=== PATIENT | female | born 1980 | race Caucasian/White ===

== ENCOUNTER 2017-10-31 06:47 | Emergency (ER) | payer OTHER ==
[~2017-10-31] VITALS: Ht 172.7 cm; Wt 101.2 kg
[~2017-10-31 06:47] MED LIST: ADIPEX-P37.5 MG PO; AMOXICILLIN500 MG PO; AUGMENTIN 875875 MG PO; CATAFLAM50 MG PO; CLARITIN-D 24 H1 TAB PO; CLARITIN10 MG PO; DOXYCYCLINE MO100 MG PO; FLEXERIL5 MG PO; HYDROCODONE BIT1 T11 PO; IBU800 MG PO; KLOR-CON 88 ME1 PO; LASIX20 MG PO; MEDROL DOSEPAK4 MG PO; MOTRIN800 MG PO; OMEPRAZOLE MAGN20 MG PO; PRILOSEC40 MG; PROVENTIL0.09 MG/AC IH; ROBITUSSIN AC 110 ML PO; ROBITUSSIN-AC480 ML PO; SYNTHROID0.025 MG PO; VITAMIN B1100 MCG/ML IM; VITAMIN B1225 MCG; VITAMIN D1000 IU PO; ZITHROMAX Z PA250 MG PO
[2017-10-31] MEDS ORDERED: ADULT TUSS100 MG/5 M PO (07:42)
== END 2017-10-31 09:37 | disposition home or self-care (01) ==
LOC: ED 06:47
DX: J01.90 Acute sinusitis, unspecified (principal); Z88.8 Allergy status to other drugs, medicaments and biological substances; Z88.6 Allergy status to analgesic agent; Z79.899 Other long term (current) drug therapy; Z90.89 Acquired absence of other organs; Z98.51 Tubal ligation status

== ENCOUNTER → 2018-01-08 | Outpatient (CLI) | payer OTHER ==
[~2018-01-08] MED LIST changes: +ADULT TUSS100 MG/5 M PO
[2018-01-08 17:26] LABS: FREE T4 1.06 ng/dl (0.76-1.46)
[2018-01-08 17:40] LABS: THYROID STIM HORMONE (HS) 23.6 uIU/ml (0.358-4.75)
== END | disposition home or self-care (01) ==
LOC: LAB 15:44
PROVIDERS: Internal Medicine
DX: E03.9 Hypothyroidism, unspecified (principal)

== ENCOUNTER 2018-05-17 01:00 | Emergency (ER) | payer OTHER ==
[~2018-05-17] VITALS: Ht 172.7 cm; Wt 103.9 kg
[2018-05-17] MEDS ORDERED: Motrin,Rufen800 MG PO (02:26)
[2018-05-17] MEDS ORDERED: TAMIFLU 75MG CA75 MG PO (02:26)
== END 2018-05-17 02:47 | disposition home or self-care (01) ==
LOC: ED 01:00
DX: J10.1 Influenza due to other identified influenza virus with other respiratory manifestations (principal); E03.9 Hypothyroidism, unspecified; Z88.6 Allergy status to analgesic agent; Z88.8 Allergy status to other drugs, medicaments and biological substances; Z79.899 Other long term (current) drug therapy

== ENCOUNTER → 2018-08-15 | Outpatient (CLI) | payer OTHER ==
[~2018-08-15] MED LIST changes: +FLONASE ALLERG9.9 ML NAS; +Motrin,Rufen800 MG PO; +PREDNISONE50 MG PO; +TAMIFLU 75MG CA75 MG PO
[2018-08-15 10:49] LABS: BASO # 0.1 10*3/uL (0.0-0.1); BASO % 0.9 % (0.0-1.0); EOS # 0.2 10*3/uL (0.0-0.4); EOS % 2.6 % (1.0-4.0); HEMATOCRIT 34.9 % (37.0-47.0); LYMPH # 1.9 10*3/uL (1.3-4.4); LYMPH % 32.5 % (27.0-41.0); MEAN CELL VOLUME 86.8 fl (81.0-99.0); MEAN CORPUSCULAR HGB 27.4 pg (27.0-31.0); MEAN CORPUSCULAR HGB CONC 31.5 g/dl (33.0-37.0); MEAN PLATELET VOLUME 11.5 fl (9.6-12.3); MONO # 0.4 10*3/uL (0.1-1.0); MONO % 7.1 % (3.0-9.0); NEUT # 3.3 10*3/uL (2.3-7.9); NEUT % 56.6 % (47.0-73.0); PLATELET COUNT AUTOMATED 250 10*3/uL (130-400); RED BLOOD COUNT 4.02 10*6/uL (4.10-5.10); RED CELL DISTRI WIDTH 13.7 % (0-14.5); WHITE BLOOD COUNT 5.8 10*3/uL (4.8-10.8)
[2018-08-15 11:14] LABS: ALBUMIN 3.2 gm/dl (3.1-4.5); ALKALINE PHOSPHATASE 70 U/L (45-117); BUN 9 mg/dl (7-24); CHLORIDE 112 mmol/L (98-107); CREATININE 0.81 mg/dL (0.55-1.02); FREE T4 0.92 ng/dl (0.76-1.46); POTASSIUM 3.7 mmol/L (3.5-5.1); SGOT/AST 32 IU/L (3-35); SGPT/ALT 18 U/L (12-78); SODIUM 141 mmol/L (136-145); TOTAL PROTEIN 7.5 gm/dL (6.4-8.2)
[2018-08-16 08:06] LABS: RHEUMATOID ARTHRITIS FACTOR <10.0 IU/mL (0.0-13.9)
== END | disposition home or self-care (01) ==
LOC: LAB 10:22
PROVIDERS: Internal Medicine
DX: M25.50 Pain in unspecified joint (principal)

== ENCOUNTER 2018-08-25 23:28 | Emergency (ER) | payer OTHER ==
[~2018-08-25] VITALS: Wt 103.4 kg
[~2018-08-25 23:28] MED LIST changes: -FLONASE ALLERG9.9 ML NAS; -PREDNISONE50 MG PO
[2018-08-26] MEDS ORDERED: FLONASE ALLERG9.9 ML NAS (01:25)
[2018-08-26] MEDS ORDERED: PREDNISONE50 MG PO (01:25)
== END 2018-08-26 01:40 | disposition home or self-care (01) ==
LOC: ED 23:28
DX: J06.9 Acute upper respiratory infection, unspecified (principal); H92.03 Otalgia, bilateral; E03.9 Hypothyroidism, unspecified; Z88.6 Allergy status to analgesic agent; Z88.8 Allergy status to other drugs, medicaments and biological substances; Z79.899 Other long term (current) drug therapy

== ENCOUNTER → 2018-08-27 | Outpatient (CLI) | payer OTHER ==
[~2018-08-27] MED LIST changes: +FLONASE ALLERG9.9 ML NAS; +PREDNISONE50 MG PO
[2018-08-27 13:26] LABS: IRON 27 ug/dL (50-170); TOTAL IRON BINDING CAPACITY 271 ug/dl (250-450)
[2018-08-28 17:08] LABS: ANTI-DSDNA ANTIBODIES 096339 1 IU/mL (0-9); ANTI-RNP ANTIBODIES <0.2 AI (0.0-0.9); SJOGREN ANTI-SS-A <0.2 AI (0.0-0.9); SJOREN AB, ANTI-SS-B <0.2 AI (0.0-0.9)
[2018-08-28 21:09] LABS: CCP ANTIBODIES IGG/IGA 8 units (0-19)
== END | disposition home or self-care (01) ==
LOC: LAB 11:49
PROVIDERS: Internal Medicine
DX: D64.9 Anemia, unspecified (principal); R76.8 Other specified abnormal immunological findings in serum

== ENCOUNTER → 2018-12-29 | Outpatient (CLI) | payer OTHER | END | disposition home or self-care (01) | LOC: RAD 16:32 | DX: M25.561 Pain in right knee (principal); M25.572 Pain in left ankle and joints of left foot ==

== ENCOUNTER 2019-01-09 22:58 | Emergency (ER) | payer OTHER ==
[~2019-01-09] VITALS: Ht 172.7 cm; Wt 95.3 kg
== END 2019-01-10 00:35 | disposition home or self-care (01) ==
LOC: ED 22:58
DX: M79.672 Pain in left foot (principal); I10 Essential (primary) hypertension; E78.00 Pure hypercholesterolemia, unspecified; Z86.73 Personal history of transient ischemic attack (TIA), and cerebral infarction without residual deficits; Z88.6 Allergy status to analgesic agent; Z88.8 Allergy status to other drugs, medicaments and biological substances; Z79.899 Other long term (current) drug therapy; X50.1XXA Overexertion from prolonged static or awkward postures, initial encounter; Y93.89 Activity, other specified; Y92.89 Other specified places as the place of occurrence of the external cause; Y99.8 Other external cause status

== ENCOUNTER 2019-04-22 21:19 | Emergency (ER) | payer OTHER | END 2019-04-22 21:27 | disposition left against medical advice (07) | LOC: ED 21:19 | DX: R53.1 Weakness (principal); Z53.21 Procedure and treatment not carried out due to patient leaving prior to being seen by health care provider ==

== ENCOUNTER → 2019-10-31 | Outpatient (CLI) | payer OTHER ==
[2019-10-31 17:05] LABS: THYROID STIM HORMONE (HS) 0.242 uIU/ml (0.358-4.75)
== END | disposition home or self-care (01) ==
LOC: LAB 15:31
PROVIDERS: ATTEND Internal Medicine
DX: E61.1 Iron deficiency (principal); E03.9 Hypothyroidism, unspecified

== ENCOUNTER → 2020-03-27 | Outpatient (CLI) | payer OTHER ==
[2020-03-27 15:52] LABS: THYROID STIM HORMONE (HS) 0.673 uIU/ml (0.358-4.75)
[2020-03-27 16:01] LABS: FERRITIN 52.1 ng/mL (10.0-291.0)
== END | disposition home or self-care (01) ==
LOC: LAB 14:58
PROVIDERS: ATTEND Internal Medicine
DX: E03.9 Hypothyroidism, unspecified (principal); E53.8 Deficiency of other specified B group vitamins; E61.1 Iron deficiency

== ENCOUNTER → 2020-10-01 | Outpatient (CLI) | payer OTHER ==
[2020-10-01 17:48] LABS: VITAMIN D, 25-HYDROXY 25.8 ng/mL (30-100)
[2020-10-01 17:50] LABS: ALBUMIN 3.3 gm/dl (3.1-4.5); ALKALINE PHOSPHATASE 88 U/L (45-117); BUN 11 mg/dl (7-24); CHLORIDE 110 mmol/L (98-107); CHOLESTEROL 140 mg/dL (<200); CREATININE 0.62 mg/dL (0.55-1.02); LDL CHOLESTEROL 82 mg/dL (9-159); POTASSIUM 3.6 mmol/L (3.5-5.1); SGOT/AST 33 IU/L (3-35); SGPT/ALT 21 U/L (12-78); SODIUM 140 mmol/L (136-145); TOTAL PROTEIN 7.5 gm/dL (6.4-8.2); TRIGLYCERIDES 84 mg/dl (<150)
[2020-10-01 17:58] LABS: THYROID STIM HORMONE (HS) 0.229 uIU/ml (0.358-4.75)
== END | disposition home or self-care (01) ==
LOC: LAB 16:48
PROVIDERS: ATTEND Internal Medicine
DX: K21.9 Gastro-esophageal reflux disease without esophagitis (principal); E53.8 Deficiency of other specified B group vitamins; E55.9 Vitamin D deficiency, unspecified; E03.9 Hypothyroidism, unspecified

== ENCOUNTER 2021-03-17 11:55 | Emergency (ER) | payer OTHER ==
[~2021-03-17] VITALS: Ht 172.7 cm; Wt 99.8 kg
[2021-03-17] MEDS ORDERED: SINGULAIR10 M1 PO (12:26)
[2021-03-17 13:58] LABS: BASO # 0.1 10*3/uL (0.0-0.1); BASO % 0.9 % (0.0-1.0); EOS # 0.2 10*3/uL (0.0-0.4); EOS % 2.7 % (1.0-4.0); HEMATOCRIT 32.1 % (37.0-47.0); LYMPH # 2.6 10*3/uL (1.3-4.4); LYMPH % 33.7 % (27.0-41.0); MEAN CELL VOLUME 86.5 fl (81.0-99.0); MEAN CORPUSCULAR HGB CONC 31.2 g/dl (33.0-37.0); MEAN PLATELET VOLUME 10.3 fl (9.6-12.3); MONO # 0.4 10*3/uL (0.1-1.0); MONO % 4.9 % (3.0-9.0); NEUT # 4.4 10*3/uL (2.3-7.9); NEUT % 57.5 % (47.0-73.0); PLATELET COUNT AUTOMATED 317 10*3/uL (130-400); RED BLOOD COUNT 3.71 10*6/uL (4.10-5.10); RED CELL DISTRI WIDTH 13.3 % (0-14.5); WHITE BLOOD COUNT 7.7 10*3/uL (4.8-10.8)
[2021-03-17 14:11] LABS: ACT PARTIAL THROMBO TIME 28.5 SECONDS (20.0-32.1)
[2021-03-17 14:15] LABS: ALBUMIN 3.3 gm/dl (3.1-4.5); ALKALINE PHOSPHATASE 82 U/L (45-117); BUN 9 mg/dl (7-24); CHLORIDE 109 mmol/L (98-107); CREATININE 0.71 mg/dL (0.55-1.02); LIPASE 139 U/L (73-393); POTASSIUM 3.5 mmol/L (3.5-5.1); SGOT/AST 32 IU/L (3-35); SGPT/ALT 20 U/L (12-78); SODIUM 140 mmol/L (136-145); TOTAL PROTEIN 7.7 gm/dL (6.4-8.2)
[2021-03-17 17:32] LABS: BILIRUBIN 1+ (Negative); BLOOD 3+ (Negative); CLARITY Turbid (Clear); COLOR Red (Yellow); GLUCOSE Negative (Negative); KETONE Negative (Negative); LEUKO ESTERASE 3+ (Negative); NITRITE Positive (Negative); UROBILINOGEN 0.2 E.U./dl (0.0-1.0)
[2021-03-17 17:43] LABS: RBC TNTC rbc/hpf (0-2); WBC 31-40 wbc/hpf (0-5)
== END 2021-03-17 17:45 | disposition left against medical advice (07) ==
LOC: ED 11:55
PROVIDERS: Physician Assistant
DX: R53.1 Weakness (principal); Z88.8 Allergy status to other drugs, medicaments and biological substances; Z88.6 Allergy status to analgesic agent; Z79.899 Other long term (current) drug therapy; Z98.890 Other specified postprocedural states; Z98.51 Tubal ligation status; Z90.89 Acquired absence of other organs

== ENCOUNTER → 2021-03-24 | Outpatient (CLI) | payer OTHER ==
[~2021-03-24] MED LIST changes: +SINGULAIR10 M1 PO
== END | disposition home or self-care (01) ==
LOC: MRI 12:00
PROVIDERS: ATTEND Internal Medicine
DX: R53.1 Weakness (principal)

== ENCOUNTER → 2021-04-14 | Outpatient (CLI) | payer OTHER ==
[2021-04-14 18:04] LABS: FREE T4 1.18 ng/dl (0.76-1.46)
[2021-04-14 18:09] LABS: THYROID STIM HORMONE (HS) 22.3 uIU/ml (0.358-4.75)
== END ==
LOC: LAB 16:51
PROVIDERS: ATTEND Internal Medicine
DX: R41.3 Other amnesia (principal); E55.9 Vitamin D deficiency, unspecified

== ENCOUNTER → 2023-07-14 | Outpatient (CLI) | payer OTHER ==
[2023-07-14 17:00] LABS: BASO # 0.1 10*3/uL (0.0-0.1); BASO % 0.5 % (0.0-1.0); EOS # 0.2 10*3/uL (0.0-0.4); EOS % 2.1 % (1.0-4.0); HEMATOCRIT 31.2 % (37.0-47.0); LYMPH # 2.5 10*3/uL (1.3-4.4); LYMPH % 21.9 % (27.0-41.0); MEAN CELL VOLUME 81.7 fl (81.0-99.0); MEAN CORPUSCULAR HGB 24.9 pg (27.0-31.0); MEAN CORPUSCULAR HGB CONC 30.4 g/dl (33.0-37.0); MEAN PLATELET VOLUME 10.4 fl (9.6-12.3); MONO # 0.6 10*3/uL (0.1-1.0); MONO % 5.6 % (3.0-9.0); NEUT # 7.9 10*3/uL (2.3-7.9); NEUT % 69.5 % (47.0-73.0); PLATELET COUNT AUTOMATED 339 10*3/uL (130-400); RED BLOOD COUNT 3.82 10*6/uL (4.10-5.10); RED CELL DISTRI WIDTH 20.8 % (0-14.5); WHITE BLOOD COUNT 11.3 10*3/uL (4.8-10.8)
== END | disposition home or self-care (01) ==
LOC: LAB 16:46
PROVIDERS: ATTEND Internal Medicine Hematology & Oncology
DX: D50.9 Iron deficiency anemia, unspecified (principal); K90.49 Malabsorption due to intolerance, not elsewhere classified

== ENCOUNTER → 2023-09-04 | Outpatient (CLI) | payer OTHER ==
[2023-09-04 15:03] LABS: BASO # 0.1 10*3/uL (0.0-0.1); BASO % 0.8 % (0.0-1.0); EOS # 0.1 10*3/uL (0.0-0.4); EOS % 1.9 % (1.0-4.0); HEMATOCRIT 33.6 % (37.0-47.0); LYMPH # 2.2 10*3/uL (1.3-4.4); LYMPH % 30.5 % (27.0-41.0); MEAN CORPUSCULAR HGB 26.7 pg (27.0-31.0); MEAN CORPUSCULAR HGB CONC 30.7 g/dl (33.0-37.0); MEAN PLATELET VOLUME 10.4 fl (9.6-12.3); MONO # 0.5 10*3/uL (0.1-1.0); MONO % 6.5 % (3.0-9.0); NEUT # 4.4 10*3/uL (2.3-7.9); PLATELET COUNT AUTOMATED 270 10*3/uL (130-400); RED BLOOD COUNT 3.86 10*6/uL (4.10-5.10); RED CELL DISTRI WIDTH 17.6 % (0-14.5); WHITE BLOOD COUNT 7.3 10*3/uL (4.8-10.8)
== END | disposition home or self-care (01) ==
LOC: LAB 14:51
PROVIDERS: ATTEND Internal Medicine Hematology & Oncology
DX: D50.9 Iron deficiency anemia, unspecified (principal); K90.49 Malabsorption due to intolerance, not elsewhere classified